=== PATIENT | female | born 1980 | race Native Hawaiian/Other Pacific Islander ===

== ENCOUNTER 2017-04-07 03:28 | Inpatient (IN) | payer OTHER ==
[2017-04-07] MEDS ORDERED: TYLENOL ONE (03:52)
[2017-04-07] MEDS ORDERED: TYLENOL PO ONE (03:58)
[2017-04-07 04:42] LABS: Basophils % (Auto) 0.2 % (0.0-1.8); Eosinophils % (Auto) 0.5 % (0.0-4.3); Hematocrit 36.8 % (30.3-42.9); Hemoglobin 11.9 gm/dl (10.1-14.3); Mean Corpuscular HGB Conc 32 % (30-34); Mean Corpuscular Hemoglobin 28 pg (28-32); Mean Corpuscular Volume 88 fl (79-97); Platelet Count 137 K/mm3 (140-440); Red Blood Count 4.18 M/mm3 (3.65-5.03); Red Cell Distribution Width 13.3 % (13.2-15.2); White Blood Count 16.6 K/mm3 (4.5-11.0)
[2017-04-07 05:33] LABS: Anion Gap 20 mmol/L; BUN/Creatinine Ratio 11.15; Blood Urea Nitrogen 29 mg/dL (7-17); Calcium 8.9 mg/dL (8.4-10.2); Carbon Dioxide 17 mmol/L (22-30); Glucose 128 mg/dL (65-100); Potassium 3.9 mmol/L (3.6-5.0); Sodium 135 mmol/L (137-145)
--- NOTE | 2017-04-07 07:32 | XRay Report ---
ROUTINE CHEST, TWO VIEWS: HISTORY: Shortness of breath. The trachea, heart, mediastinal contour, lung davidson and bony thorax are unremarkable. IMPRESSION: Unremarkable chest x-ray.
[2017-04-07 09:27] LABS: Bacteria,Urine 2+ /HPF (Negative); Bilirubin,Urine NEG (Negative); Blood,Urine NEG (Negative); Ketones,Urine NEG (Negative); Leukocyte Esterase,Urine MOD (Negative); Mucus,Urine FEW /HPF; Nitrite,Urine NEG (Negative); Urobilinogen,Urine < 2.0 mg/dL (<2.0)
--- NOTE | 2017-04-07 11:16 | Emergency Department Report ---
ED General Adult HPI - General Chief complaint: Nausea/Vomiting/Diarrhea Stated complaint: NAUSEA/VOMITING 2 DAYS Time Seen by Provider: 04/07/17 11:13 Source: patient, EMS Mode of arrival: Stretcher Limitations: Language Barrier - History of Present Illness Initial comments: Patient complains of left flank pain associated with dysuria but nonradiating for the past 2-3 days. She has had fever and chills and some nausea but no recent vomiting. Patient states that she's had one previous urinary tract infection but has been on no recent antibiotics. She does not have a history of kidney stone. She states her brother is on dialysis for unknown cause. He is not diabetic nor hypertensive she states. -: Gradual, days(s) Location: back, left Radiation: non-radiation Severity scale (0 -10): 0 Consistency: intermittent Improves with: none Worsens with: none Associated Symptoms: denies other symptoms Treatments Prior to Arrival: none - Related Data Allergies Allergy/AdvReac Type Severity Reaction Status Date / Time No Known Allergies Allergy Verified 04/07/17 04:04 ED Review of Systems ROS: Stated complaint: NAUSEA/VOMITING 2 DAYS Other details as noted in HPI Constitutional: chills, fever Eyes: denies: eye pain, eye discharge, vision change ENT: denies: ear pain, throat pain Respiratory: denies: cough, shortness of breath, wheezing Cardiovascular: denies: chest pain, palpitations Endocrine: no symptoms reported Gastrointestinal: denies: abdominal pain, nausea, diarrhea Genitourinary: as per HPI, urgency, dysuria. denies: discharge Musculoskeletal: denies: back pain, joint swelling, arthralgia Skin: denies: rash, lesions Neurological: denies: headache, weakness, paresthesias Psychiatric: denies: anxiety, depression Hematological/Lymphatic: denies: easy bleeding, easy bruising ED Past Medical Hx - Past Medical History Previous Medical History?: Yes Hx Kidney Stones: No Additional medical history: UTI - Surgical History Past Surgical History?: Yes Additional Surgical History: appy - Social History Smoking Status: Never Smoker Substance Use Type: None ED Physical Exam - General Limitations: No Limitations General appearance: alert, in no apparent distress - Head Head exam: Present: atraumatic, normocephalic - Eye Eye exam: Present: normal appearance. Absent: scleral icterus - ENT ENT exam: Present: mucous membranes moist - Neck Neck exam: Present: normal inspection. Absent: tenderness, meningismus - Respiratory Respiratory exam: Present: normal lung sounds bilaterally. Absent: respiratory distress - Cardiovascular Cardiovascular Exam: Present: regular rate, normal rhythm. Absent: systolic murmur, diastolic murmur, rubs, gallop - GI/Abdominal GI/Abdominal exam: Present: soft, normal bowel sounds. Absent: distended, tenderness, guarding, rebound, rigid - Extremities Exam Extremities exam: Present: normal inspection - Back Exam Back exam: Present: normal inspection - Neurological Exam Neurological exam: Present: alert, oriented X3, CN II-XII intact. Absent: motor sensory deficit - Psychiatric Psychiatric exam: Present: normal affect, normal mood - Skin Skin exam: Present: warm, dry, intact, normal color. Absent: rash ED Course Vital Signs 04/07/17 04/07/17 04/07/17 03:35 04:02 05:26 Temperature 102.6 F H 98.3 F Pulse Rate 123 H 100 H Respiratory 20 18 Rate Blood Pressure 108/73 Blood Pressure [Right] O2 Sat by Pulse 99 98 Oximetry 04/07/17 04/07/17 09:28 11:11 Temperature 98.1 F 98.3 F Pulse Rate 65 82 Respiratory 16 16 Rate Blood Pressure 104/61 Blood Pressure 110/72 [Right] O2 Sat by Pulse 99 Oximetry - Reevaluation(s) Reevaluation #1: Discussed with Dr. Carr. The patient will be bridged to his service. I am uncertain as to why the nurse put a history of kidney stones on the patient's chart since the patient was clear that she either had a history of kidney stones nor a family history of kidney stones. I suspect this was secondary to language barrier. In any case I believe it is worthy to do CT imaging study to determine the presence or absence of renal obstruction/kidney stones as an explanation of the patient's impaired renal function. This has been ordered. She has been started on ceftriaxone. She is stable at this time. 04/07/17 11:51 ED Medical Decision Making - Lab Data Result diagrams: 04/07/17 04:21 04/07/17 04:21 Laboratory Results - last 24 hr 04/07/17 04/07/17 04/07/17 04:21 04:21 04:21 WBC 16.6 H RBC 4.18 Hgb 11.9 Hct 36.8 MCV 88 MCH 28 MCHC 32 RDW 13.3 Plt Count 137 L Lymph % (Auto) 4.2 L [place] % (Auto) 5.9 Eos % (Auto) 0.5 Baso % (Auto) 0.2 Lymph # 0.7 L [place] # 1.0 H Eos # 0.1 Baso # 0.0 Seg Neutrophils % 89.2 H Seg Neutrophils # 14.8 H Sodium 135 L Potassium 3.9 Chloride 102.0 Carbon Dioxide 17 L Anion Gap 20 BUN 29 H Creatinine 2.6 H Estimated GFR 21 BUN/Creatinine Ratio 11.15 Glucose 128 H Calcium 8.9 Troponin T < 0.010 HCG, Qual Negative Urine Color Urine Turbidity Urine pH Ur Specific [place] Urine Protein Urine Glucose (UA) Urine Ketones Urine Blood Urine Nitrite Urine Bilirubin Urine Urobilinogen Ur Leukocyte Esterase Urine WBC (Auto) Urine RBC (Auto) U Epithel Cells (Auto) Urine Bacteria (Auto) Urine Mucus Urine HCG, Qual 04/07/17 08:10 WBC RBC Hgb Hct MCV MCH MCHC RDW Plt Count Lymph % (Auto) [place] % (Auto) Eos % (Auto) Baso % (Auto) Lymph # [place] # Eos # Baso # Seg Neutrophils % Seg Neutrophils # Sodium Potassium Chloride Carbon Dioxide Anion Gap BUN Creatinine Estimated GFR BUN/Creatinine Ratio Glucose Calcium Troponin T HCG, Qual Urine Color Yellow Urine Turbidity Clear Urine pH 6.0 Ur Specific [place] 1.012 Urine Protein 100 mg/dl Urine Glucose (UA) Neg Urine Ketones Neg Urine Blood Neg Urine Nitrite Neg Urine Bilirubin Neg Urine Urobilinogen < 2.0 Ur Leukocyte Esterase Mod Urine WBC (Auto) 93.0 H Urine RBC (Auto) 5.0 U Epithel Cells (Auto) 2.0 Urine Bacteria (Auto) 2+ Urine Mucus Few Urine HCG, Qual Negative Critical care attestation.: If time is entered above; I have spent that time in minutes in the direct care of this critically ill patient, excluding procedure time. ED Disposition Clinical Impression: Acute pyelonephritis Renal failure Qualifiers: Renal failure chronicity: unspecified chronicity Qualified Code(s): N19 - Unspecified kidney failure Disposition: OP ADMIT IP TO THIS HOSP Is pt being admited?: Yes Does the pt Need Aspirin: No Condition: Stable Time of Disposition: 11:52
[2017-04-07] MEDS ORDERED: ROCEPHIN/NS 1 GM/50 ML 1 GM/50 ML BAG IV ONE (11:18)
[2017-04-07] MEDS ORDERED: NACL 0.9% 1000 ML 1,000 ML IV ONE (11:29)
[2017-04-07] MEDS ORDERED: MORPHINE IV ONE (11:49)
[2017-04-07] MEDS ORDERED: ZOFRAN IV ONE (11:49)
[2017-04-07] MEDS ORDERED: TYLENOL PO PRN (11:55)
[2017-04-07 12:19] LABS: INR 1.15 (0.87-1.13)
[2017-04-07 12:20] LABS: Partial Thromboplastin Time 29.3 Sec. (24.2-36.6)
--- NOTE | 2017-04-07 12:25 | Admit Criteria Form ---
Admission Criteria Documentation: PYELONEPHRITIS, ACUTE Clinical Indications for Admission to Inpatient Care (Place 'X' for any and all applicable criteria): Admission is indicated for ANY ONE of the following 1,2,3,4,5 [ ]I. Outpatient treatment has failed or is not feasible (eg, multidrug- resistant organism).5 [ ]II. beyond 24 weeks' gestation6 [ ]III. Hemodynamic instability [ ]IV. Immunocompromised state (eg, AIDS, diabetes, sickle cell disease) [ ]V. Known renal or urologic abnormalities (eg, indwelling catheter, structural abnormalities, renal calculi, urinary stent, previous urologic surgery) [ ]. Condition that requires drainage procedure, including ANY ONE of the following: [ ]a) Urinary obstruction [ ]b) Pyelitis [ ]c) Pyonephrosis [ ]d) Renal or perinephric abscess [ ]e) Emphysematous pyelonephritis 7 [X ]VII. Inpatient admission required rather than observation care (Also use Pyelonephritis, Acute: Observation Care Criteria as appropriate) because of ANY ONE of the following: [ ]a) High fever or infection requiring inpatient admission as indicated by ANY ONE of [id number] [ ]A. Documented bacteremia [ ]B. Temp>104.9 [id number] (oral) [ ]C. Temp>103.10F (oral) or <96.80F (rectal) that does not respond to all emergency treatment [ ]b) Acute renal failure [ ]c) Other significant finding or clinical condition judged not to be within the scope of observation care [ ]d) IV fluid to replace significant ongoing (eg, for over 24hrs) losses (> 3 L/m2 per day) [ X]e) Other condition,treatment or monitoring requiring inpatient admission The original [employer] [facility] content created by [employer] has been revised. The portions of the content which have been revised are identified through the use of italic text or in bold, and [employer] [facility] has neither reviewed nor approved the modified material. All other unmodified content is copyright [employer]. Please see references footnoted in the original [employer] [facility] edition 2016 Admission Criteria Met: Yes
--- NOTE | 2017-04-07 12:27 | Cat Scan Report ---
CT scan of abdomen and pelvis without IV contrast: History: Abdominal pain. UTI. Findings: Suspicion of a nodular density/prominent vessel right lower lobe of the lung. No pleural or pericardial effusion. Normal liver spleen pancreas gallbladder. Normal adrenals kidney parenchyma and bladder. No free to peritoneal fluid or air. No evidence of adenopathy. Suspicion of a cyst right adnexa. Gaseous colon with moderate volume stool in colon with fecal impaction in the rectum. No evidence of appendicitis or diverticulitis. No bowel distention. Impression: Suspicion of cyst right adnexa.
[2017-04-07] MEDS: NACL 0.9% 1000 ML 1,000 ML IV SCH (15:47)
[2017-04-07] MEDS ORDERED: DILAUDID IV PRN (16:00)
--- NOTE | 2017-04-07 16:09 | History and Physical Report ---
History of Present Illness Date of examination: 04/07/17 Date of admission: 04/07/17 11:54 Chief complaint: L flank pain 2 days History of present illness: Patient complains of left flank pain associated with dysuria but nonradiating for the past 2-3 days. She has had fever and chills and some nausea but no recent vomiting. Patient states that she's had one previous urinary tract infection but has been on no recent antibiotics. She does not have a history of kidney stone. She states her brother is on dialysis for unknown cause. He is not diabetic nor hypertensive she states. -: Gradual, days(s) Location: back, left Radiation: non-radiation Severity scale (0 -10): 03/07 Consistency: intermittent Improves with: none Worsens with: none Associated Symptoms: denies other symptoms Treatments Prior to Arrival: none Review of Systems ROS: Stated complaint: NAUSEA/VOMITING 2 DAYS Other details as noted in HPI Constitutional: chills, fever Eyes: denies: eye pain, eye discharge, vision change ENT: denies: ear pain, throat pain Respiratory: denies: cough, shortness of breath, wheezing Cardiovascular: denies: chest pain, palpitations Endocrine: no symptoms reported Gastrointestinal: denies: abdominal pain, nausea, diarrhea Genitourinary: as per HPI, urgency, dysuria. denies: discharge Musculoskeletal: denies: back pain, joint swelling, arthralgia Skin: denies: rash, lesions Neurological: denies: headache, weakness, paresthesias Psychiatric: denies: anxiety, depression Hematological/Lymphatic: denies: easy bleeding, easy bruising Past Medical Hx - Past Medical History Previous Medical History?: Yes Hx Kidney Stones: No Additional medical history: UTI - Surgical History Past Surgical History?: Yes Additional Surgical History: appendectomy - Social History Smoking Status: Never Smoker Substance Use Type: None Past History Past Medical History: No medical history Medications and Allergies Allergies Allergy/AdvReac Type Severity Reaction Status Date / Time No Known Allergies Allergy Verified 04/07/17 04:04 Home Medications Medication Instructions Recorded Confirmed Last Taken Type No Known Home Medications [No 04/07/17 04/07/17 Unknown History Reported Home Medications] Active Meds: Active Medications Acetaminophen (Tylenol) 650 mg PO Q4H PRN PRN Reason: fever Last Admin: 04/07/17 14:56 Dose: 650 mg Hydromorphone HCl (Dilaudid) 1 mg IV Q4H PRN PRN Reason: Pain , Severe (7-10) Last Admin: 04/07/17 15:47 Dose: 1 mg Sodium Chloride (Nacl 0.9% 1000 Ml) 1,000 mls @ 100 mls/hr IV DIRECT ZIGGY Last Admin: 04/07/17 15:47 Dose: 100 mls/hr Review of Systems All systems: negative Exam - Physical Exam Narrative exam: Comfortable - Constitutional Vitals: Temp Pulse Resp BP Pulse Ox 103.9 F H 117 H 28 H 118/64 100 04/07/17 14:15 04/07/17 14:15 04/07/17 14:15 04/07/17 14:15 04/07/17 14:15 General appearance: Present: no acute distress, well-nourished - EENT Eyes: Present: PERRL ENT: hearing intact, clear oral mucosa - Neck Neck: Present: supple, normal ROM - Respiratory Respiratory effort: normal Respiratory: bilateral: CTA - Cardiovascular Heart Sounds: Present: S1 & S2. Absent: rub, click - Extremities Extremities: pulses symmetrical, No edema Peripheral Pulses: within normal limits - Abdominal General gastrointestinal: Present: soft, non-tender, non-distended, normal bowel sounds Female genitourinary: Present: normal - Integumentary Integumentary: Present: clear, warm, dry - Musculoskeletal Musculoskeletal: gait normal, strength equal bilaterally - Psychiatric Psychiatric: appropriate mood/affect, intact judgment & insight - Neurologic Neurologic: CNII-XII intact, moves all extremities Results - Labs CBC & Chem 7: 04/08/17 06:33 04/08/17 06:33 Labs: Laboratory Last Values WBC 16.6 K/mm3 (4.5-11.0) H 04/07/17 04:21 RBC 4.18 M/mm3 (3.65-5.03) 04/07/17 04:21 Hgb 11.9 gm/dl (10.1-14.3) 04/07/17 04:21 Hct 36.8 % (30.3-42.9) 04/07/17 04:21 MCV 88 fl (79-97) 04/07/17 04:21 MCH 28 pg (28-32) 04/07/17 04:21 MCHC 32 % (30-34) 04/07/17 04:21 RDW 13.3 % (13.2-15.2) 04/07/17 04:21 Plt Count 137 K/mm3 (140-440) L 04/07/17 04:21 Lymph % (Auto) 4.2 % (13.4-35.0) L 04/07/17 04:21 [place] % (Auto) 5.9 % (0.0-7.3) 04/07/17 04:21 Eos % (Auto) 0.5 % (0.0-4.3) 04/07/17 04:21 Baso % (Auto) 0.2 % (0.0-1.8) 04/07/17 04:21 Lymph # 0.7 K/mm3 (1.2-5.4) L 04/07/17 04:21 [place] # 1.0 K/mm3 (0.0-0.8) H 04/07/17 04:21 Eos # 0.1 K/mm3 (0.0-0.4) 04/07/17 04:21 Baso # 0.0 K/mm3 (0.0-0.1) 04/07/17 04:21 Seg Neutrophils % 89.2 % (40.0-70.0) H 04/07/17 04:21 Seg Neutrophils # 14.8 K/mm3 (1.8-7.7) H 04/07/17 04:21 PT 15.3 Sec. (12.2-14.9) H 04/07/17 11:51 INR 1.15 (0.87-1.13) H 04/07/17 11:51 APTT 29.3 Sec. (24.2-36.6) 04/07/17 11:51 Sodium 135 mmol/L (137-145) L 04/07/17 04:21 Potassium 3.9 mmol/L (3.6-5.0) 04/07/17 04:21 Chloride 102.0 mmol/L (98-107) 04/07/17 04:21 Carbon Dioxide 17 mmol/L (22-30) L 04/07/17 04:21 Anion Gap 20 mmol/L 04/07/17 04:21 BUN 29 mg/dL (7-17) H 04/07/17 04:21 Creatinine 2.6 mg/dL (0.7-1.2) H 04/07/17 04:21 Estimated GFR 21 ml/min 04/07/17 04:21 BUN/Creatinine Ratio 11.15 % 04/07/17 04:21 Glucose 128 mg/dL (65-100) H 04/07/17 04:21 Lactic Acid 1.30 mmol/L (0.7-2.0) 04/07/17 11:51 Calcium 8.9 mg/dL (8.4-10.2) 04/07/17 04:21 Troponin T < 0.010 ng/mL (0.00-0.029) 04/07/17 04:21 HCG, Qual Negative (Negative) 04/07/17 04:21 Urine Color Yellow (Yellow) 04/07/17 08:10 Urine Turbidity Clear (Clear) 04/07/17 08:10 Urine pH 6.0 (5.0-7.0) 04/07/17 08:10 Ur Specific [place] 1.012 (1.003-1.030) 04/07/17 08:10 Urine Protein 100 mg/dl mg/dL (Negative) 04/07/17 08:10 Urine Glucose (UA) Neg mg/dL (Negative) 04/07/17 08:10 Urine Ketones Neg mg/dL (Negative) 04/07/17 08:10 Urine Blood Neg (Negative) 04/07/17 08:10 Urine Nitrite Neg (Negative) 04/07/17 08:10 Urine Bilirubin Neg (Negative) 04/07/17 08:10 Urine Urobilinogen < 2.0 mg/dL (<2.0) 04/07/17 08:10 Ur Leukocyte Esterase Mod (Negative) 04/07/17 08:10 Urine WBC (Auto) 93.0 /HPF (0.0-6.0) H 04/07/17 08:10 Urine RBC (Auto) 5.0 /HPF (0.0-6.0) 04/07/17 08:10 U Epithel Cells (Auto) 2.0 /HPF (0-13.0) 04/07/17 08:10 Urine Bacteria (Auto) 2+ /HPF (Negative) 04/07/17 08:10 Urine Mucus Few /HPF 04/07/17 08:10 Urine HCG, Qual Negative (Negative) 04/07/17 08:10 - Imaging and Cardiology CT scan - abdomen: report reviewed (Cyst Rt Adnexa) Assessment and Plan Advance Directives: Yes (FC) VTE prophylaxis?: Chemical Plan of care discussed with patient/family: Yes - Patient Problems (1) Acute pyelonephritis Current Visit: Yes Status: Acute Plan to address problem: Iv Rocephin 2 gm IVPB Transition to po ABX day 3 depending on symptoms (2) DVT prophylaxis Current Visit: Yes Status: Acute Plan to address problem: on lovenox
[2017-04-07] MEDS ORDERED: PERCOCET 5/325 PO PRN (22:06)
[2017-04-07] MEDS ORDERED: DULCOLAX PR PRN (22:06)
[2017-04-07] MEDS ORDERED: ZOFRAN IV PRN (22:06)
[2017-04-07] MEDS ORDERED: AMBIEN PO PRN (22:06)
[2017-04-07] MEDS ORDERED: MILK OF MAGNESIA PO PRN (22:06)
[2017-04-08] MEDS: NACL 0.9% 1000 ML 1,000 ML IV SCH (01:20)
[2017-04-08 06:54] LABS: Basophils % (Auto) 0.2 % (0.0-1.8); Eosinophils % (Auto) 1.5 % (0.0-4.3); Hematocrit 30.9 % (30.3-42.9); Mean Corpuscular HGB Conc 32 % (30-34); Mean Corpuscular Hemoglobin 29 pg (28-32); Mean Corpuscular Volume 89 fl (79-97); Platelet Count 108 K/mm3 (140-440); Red Blood Count 3.49 M/mm3 (3.65-5.03); Red Cell Distribution Width 13.8 % (13.2-15.2); White Blood Count 13.6 K/mm3 (4.5-11.0)
[2017-04-08 07:20] LABS: BUN/Creatinine Ratio 10.37; Calcium 8.4 mg/dL (8.4-10.2); Chloride 107.1 mmol/L (98-107); Potassium 4.1 mmol/L (3.6-5.0)
[2017-04-08] MEDS ORDERED: PEPCID PO SCH (10:00)
[2017-04-08] MEDS: ROCEPHIN/NS 2 GM/100 ML 2 GM/100 ML BAG IV SCH (11:13)
[2017-04-08] MEDS: PEPCID PO SCH ×2 (11:14→22:10)
[2017-04-08] MEDS: TYLENOL PO PRN (15:48)
--- NOTE | 2017-04-08 17:11 | Progress Note ---
Assessment and Plan Assessment and plan: --Febrile illness Secondary to pyelonephritis/UTI present on admission Antipyretics, IV fluids, antibiotics, follow cultures --Acute pyelonephritis Cultures negative to date, continue empiric antibiotics, supportive care --Sepsis secondary to acute pyelonephritis Continue current management --Acute renal failure; vasomotor nephropathy; ATN Closely monitor renal function, IV hydration, avoid nephrotoxic medications Consistent nephrology evaluation if needed --Leukocytosis; secondary to sepsis and pyelonephritis, slowly trending down --DVT prophylaxis with Lovenox Closely monitor the patient and adjust the management as needed Plan of care discussed with the patient and her nurse Disposition; possible discharge in 1-2 days if stable History Interval history: Patient seen and evaluated medical records reviewed. Spiked fever of 103 this morning Admitted with sepsis and pyelonephritis on empiric antibiotics Patient complains of generalized weakness, denies chest pain denies nausea vomiting Alert awake oriented 3 not in acute distress Vital signs reviewed stable Hospitalist Physical - Constitutional Vitals: Temp Pulse Resp BP Pulse Ox 99.2 F 84 18 103/65 98 04/08/17 16:00 04/08/17 16:00 04/08/17 16:00 04/08/17 16:00 04/08/17 16:00 General appearance: Present: no acute distress, well-nourished - EENT Eyes: Present: PERRL, EOM intact - Neck Neck: Present: supple, normal ROM - Respiratory Respiratory effort: normal Respiratory: negative: rales, rhonchi, wheezing - Cardiovascular Rhythm: regular Heart Sounds: Present: S1 & S2 - Extremities Extremities: no ischemia, No edema - Abdominal General gastrointestinal: soft, non-tender, non-distended, normal bowel sounds - Integumentary Integumentary: Present: clear, warm - Psychiatric Psychiatric: appropriate mood/affect, cooperative - Neurologic Neurologic: CNII-XII intact, moves all extremities Results - Labs CBC & Chem 7: 04/08/17 06:33 04/08/17 06:33 Labs: Laboratory Last Values WBC 13.6 K/mm3 (4.5-11.0) H 04/08/17 06:33 RBC 3.49 M/mm3 (3.65-5.03) L 04/08/17 06:33 Hgb 10.0 gm/dl (10.1-14.3) L 04/08/17 06:33 Hct 30.9 % (30.3-42.9) 04/08/17 06:33 MCV 89 fl (79-97) 04/08/17 06:33 MCH 29 pg (28-32) 04/08/17 06:33 MCHC 32 % (30-34) 04/08/17 06:33 RDW 13.8 % (13.2-15.2) 04/08/17 06:33 Plt Count 108 K/mm3 (140-440) L 04/08/17 06:33 Lymph % (Auto) 13.1 % (13.4-35.0) L 04/08/17 06:33 [place] % (Auto) 8.9 % (0.0-7.3) H 04/08/17 06:33 Eos % (Auto) 1.5 % (0.0-4.3) 04/08/17 06:33 Baso % (Auto) 0.2 % (0.0-1.8) 04/08/17 06:33 Lymph # 1.8 K/mm3 (1.2-5.4) 04/08/17 06:33 [place] # 1.2 K/mm3 (0.0-0.8) H 04/08/17 06:33 Eos # 0.2 K/mm3 (0.0-0.4) 04/08/17 06:33 Baso # 0.0 K/mm3 (0.0-0.1) 04/08/17 06:33 Seg Neutrophils % 76.3 % (40.0-70.0) H 04/08/17 06:33 Seg Neutrophils # 10.4 K/mm3 (1.8-7.7) H 04/08/17 06:33 PT 15.3 Sec. (12.2-14.9) H 04/07/17 11:51 INR 1.15 (0.87-1.13) H 04/07/17 11:51 APTT 29.3 Sec. (24.2-36.6) 04/07/17 11:51 Sodium 138 mmol/L (137-145) 04/08/17 06:33 Potassium 4.1 mmol/L (3.6-5.0) 04/08/17 06:33 Chloride 107.1 mmol/L (98-107) H 04/08/17 06:33 Carbon Dioxide 20 mmol/L (22-30) L 04/08/17 06:33 Anion Gap 15 mmol/L 04/08/17 06:33 BUN 28 mg/dL (7-17) H 04/08/17 06:33 Creatinine 2.7 mg/dL (0.7-1.2) H 04/08/17 06:33 Estimated GFR 20 ml/min 04/08/17 06:33 BUN/Creatinine Ratio 10.37 % 04/08/17 06:33 Glucose 85 mg/dL (65-100) 04/08/17 06:33 Lactic Acid 1.30 mmol/L (0.7-2.0) 04/07/17 11:51 Calcium 8.4 mg/dL (8.4-10.2) 04/08/17 06:33 Troponin T < 0.010 ng/mL (0.00-0.029) 04/07/17 04:21 Lipase 22 units/L (13-60) 04/07/17 04:21 HCG, Qual Negative (Negative) 04/07/17 04:21 Urine Color Yellow (Yellow) 04/07/17 08:10 Urine Turbidity Clear (Clear) 04/07/17 08:10 Urine pH 6.0 (5.0-7.0) 04/07/17 08:10 Ur Specific [place] 1.012 (1.003-1.030) 04/07/17 08:10 Urine Protein 100 mg/dl mg/dL (Negative) 04/07/17 08:10 Urine Glucose (UA) Neg mg/dL (Negative) 04/07/17 08:10 Urine Ketones Neg mg/dL (Negative) 04/07/17 08:10 Urine Blood Neg (Negative) 04/07/17 08:10 Urine Nitrite Neg (Negative) 04/07/17 08:10 Urine Bilirubin Neg (Negative) 04/07/17 08:10 Urine Urobilinogen < 2.0 mg/dL (<2.0) 04/07/17 08:10 Ur Leukocyte Esterase Mod (Negative) 04/07/17 08:10 Urine WBC (Auto) 93.0 /HPF (0.0-6.0) H 04/07/17 08:10 Urine RBC (Auto) 5.0 /HPF (0.0-6.0) 04/07/17 08:10 U Epithel Cells (Auto) 2.0 /HPF (0-13.0) 04/07/17 08:10 Urine Bacteria (Auto) 2+ /HPF (Negative) 04/07/17 08:10 Urine Mucus Few /HPF 04/07/17 08:10 Urine HCG, Qual Negative (Negative) 04/07/17 08:10
[2017-04-09 08:55] LABS: Hematocrit 32.5 % (30.3-42.9); Hemoglobin 10.6 gm/dl (10.1-14.3); Mean Corpuscular HGB Conc 33 % (30-34); Mean Corpuscular Hemoglobin 29 pg (28-32); Mean Corpuscular Volume 89 fl (79-97); Platelet Count 147 K/mm3 (140-440); Red Blood Count 3.65 M/mm3 (3.65-5.03); Red Cell Distribution Width 13.6 % (13.2-15.2); White Blood Count 9.3 K/mm3 (4.5-11.0)
[2017-04-09] MEDS: PEPCID PO SCH ×2 (09:07→22:06)
--- NOTE | 2017-04-09 09:10 | Progress Note ---
Assessment and Plan Assessment and plan: --Gram-negative Sepsis secondary to Escherichia coli ,Continue Rocephin, IV fluids, supportive care --Acute pyelonephritis/UTI present on admission Antipyretics, IV fluids, antibiotics, cultures positive for Escherichia coli --Acute renal failure; vasomotor nephropathy; ATN Closely monitor renal function, IV hydration, avoid nephrotoxic medications nephrology evaluation --Leukocytosis; secondary to sepsis and pyelonephritis, slowly trending down --DVT prophylaxis with Lovenox Plan of care discussed with the patient and her nurse Disposition; possible discharge in 1-2 days if stable History Interval history: Patient seen and evaluated medical records reviewed Patient slightly better compared, afebrile, alert awake oriented 3 not in acute distress, vital signs reviewed Hospitalist Physical - Constitutional Vitals: Temp Pulse Resp BP Pulse Ox 97.9 F 62 18 113/54 97 04/09/17 07:57 04/09/17 07:57 04/09/17 07:57 04/09/17 07:57 04/09/17 07:57 General appearance: Present: no acute distress, well-nourished - EENT Eyes: Present: PERRL, EOM intact - Neck Neck: Present: supple, normal ROM - Respiratory Respiratory effort: normal Respiratory: bilateral: diminished, negative: rales, rhonchi, wheezing - Cardiovascular Rhythm: regular Heart Sounds: Present: S1 & S2 - Extremities Extremities: no ischemia, No edema - Abdominal General gastrointestinal: soft, non-tender, non-distended, normal bowel sounds - Integumentary Integumentary: Present: clear, warm - Psychiatric Psychiatric: appropriate mood/affect, cooperative - Neurologic Neurologic: CNII-XII intact, moves all extremities Results - Labs CBC & Chem 7: 04/09/17 07:59 04/09/17 07:59 Labs: Laboratory Last Values WBC 13.6 K/mm3 (4.5-11.0) H 04/08/17 06:33 RBC 3.49 M/mm3 (3.65-5.03) L 04/08/17 06:33 Hgb 10.0 gm/dl (10.1-14.3) L 04/08/17 06:33 Hct 30.9 % (30.3-42.9) 04/08/17 06:33 MCV 89 fl (79-97) 04/08/17 06:33 MCH 29 pg (28-32) 04/08/17 06:33 MCHC 32 % (30-34) 04/08/17 06:33 RDW 13.8 % (13.2-15.2) 04/08/17 06:33 Plt Count 108 K/mm3 (140-440) L 04/08/17 06:33 Lymph % (Auto) 13.1 % (13.4-35.0) L 04/08/17 06:33 [place] % (Auto) 8.9 % (0.0-7.3) H 04/08/17 06:33 Eos % (Auto) 1.5 % (0.0-4.3) 04/08/17 06:33 Baso % (Auto) 0.2 % (0.0-1.8) 04/08/17 06:33 Lymph # 1.8 K/mm3 (1.2-5.4) 04/08/17 06:33 [place] # 1.2 K/mm3 (0.0-0.8) H 04/08/17 06:33 Eos # 0.2 K/mm3 (0.0-0.4) 04/08/17 06:33 Baso # 0.0 K/mm3 (0.0-0.1) 04/08/17 06:33 Seg Neutrophils % 76.3 % (40.0-70.0) H 04/08/17 06:33 Seg Neutrophils # 10.4 K/mm3 (1.8-7.7) H 04/08/17 06:33 PT 15.3 Sec. (12.2-14.9) H 04/07/17 11:51 INR 1.15 (0.87-1.13) H 04/07/17 11:51 APTT 29.3 Sec. (24.2-36.6) 04/07/17 11:51 Sodium 138 mmol/L (137-145) 04/08/17 06:33 Potassium 4.1 mmol/L (3.6-5.0) 04/08/17 06:33 Chloride 107.1 mmol/L (98-107) H 04/08/17 06:33 Carbon Dioxide 20 mmol/L (22-30) L 04/08/17 06:33 Anion Gap 15 mmol/L 04/08/17 06:33 BUN 28 mg/dL (7-17) H 04/08/17 06:33 Creatinine 2.7 mg/dL (0.7-1.2) H 04/08/17 06:33 Estimated GFR 20 ml/min 04/08/17 06:33 BUN/Creatinine Ratio 10.37 % 04/08/17 06:33 Glucose 85 mg/dL (65-100) 04/08/17 06:33 Lactic Acid 1.30 mmol/L (0.7-2.0) 04/07/17 11:51 Calcium 8.4 mg/dL (8.4-10.2) 04/08/17 06:33 Troponin T < 0.010 ng/mL (0.00-0.029) 04/07/17 04:21 Lipase 22 units/L (13-60) 04/07/17 04:21 HCG, Qual Negative (Negative) 04/07/17 04:21 Urine Color Yellow (Yellow) 04/07/17 08:10 Urine Turbidity Clear (Clear) 04/07/17 08:10 Urine pH 6.0 (5.0-7.0) 04/07/17 08:10 Ur Specific [place] 1.012 (1.003-1.030) 04/07/17 08:10 Urine Protein 100 mg/dl mg/dL (Negative) 04/07/17 08:10 Urine Glucose (UA) Neg mg/dL (Negative) 04/07/17 08:10 Urine Ketones Neg mg/dL (Negative) 04/07/17 08:10 Urine Blood Neg (Negative) 04/07/17 08:10 Urine Nitrite Neg (Negative) 04/07/17 08:10 Urine Bilirubin Neg (Negative) 04/07/17 08:10 Urine Urobilinogen < 2.0 mg/dL (<2.0) 04/07/17 08:10 Ur Leukocyte Esterase Mod (Negative) 04/07/17 08:10 Urine WBC (Auto) 93.0 /HPF (0.0-6.0) H 04/07/17 08:10 Urine RBC (Auto) 5.0 /HPF (0.0-6.0) 04/07/17 08:10 U Epithel Cells (Auto) 2.0 /HPF (0-13.0) 04/07/17 08:10 Urine Bacteria (Auto) 2+ /HPF (Negative) 04/07/17 08:10 Urine Mucus Few /HPF 04/07/17 08:10 Urine HCG, Qual Negative (Negative) 04/07/17 08:10
[2017-04-09 09:17] LABS: Basophils % (Auto) 0.3 % (0.0-1.8); Eosinophils % (Auto) 2.2 % (0.0-4.3)
[2017-04-09 09:18] LABS: BUN/Creatinine Ratio 8.84; Calcium 8.9 mg/dL (8.4-10.2)
[2017-04-09] MEDS: NACL 0.9% 1000 ML 1,000 ML IV SCH ×2 (10:03→22:06)
[2017-04-09] MEDS: ROCEPHIN/NS 2 GM/100 ML 2 GM/100 ML BAG IV SCH (10:04)
[2017-04-09 10:05] LABS: Basophils % (Manual) 0 % (0.0-1.8); Blastocytes % (Manual) 0 %
[2017-04-09 10:06] LABS: Diff Status Complete; Platelet Estimate Consistent w Auto; RBC Morphology Normal
--- NOTE | 2017-04-09 10:07 | Consultation ---
History of Present Illness - Reason for Consult Consult date: 04/09/17 acute renal failure, chronic renal failure, metabolic acidosis - History of Present Illness Patient is a 37 year old HF without any significant medical history came to the ED with 1-2 days h/o left flank pain and dysuria. Patient speaks only [place] and history obtained through the photographic engineer. She has had fever, chills, nausea and few episodes of vomiting. All of her symptoms have resolved now. She is being treated for E.Coli UTI. Her creatinine is around 2.6 since admission, no prior labs are available. Her initial BP was low. Patient denies any history of kidney stone, NSAID intake or hematuria. She states her brother is on dialysis for unknown cause. Past History Past Medical History: No medical history Medications and Allergies Allergies Allergy/AdvReac Type Severity Reaction Status Date / Time No Known Allergies Allergy Verified 04/07/17 04:04 Home Medications Medication Instructions Recorded Confirmed Last Taken Type No Known Home Medications [No 04/07/17 04/07/17 Unknown History Reported Home Medications] Active Meds: Active Medications Acetaminophen (Tylenol) 650 mg PO Q4H PRN PRN Reason: Pain MILD(1-3)/Fever >100.5/CARTWRIGTH Last Admin: 04/08/17 15:48 Dose: 650 mg Bisacodyl (Dulcolax) 10 mg MN QDAY PRN PRN Reason: Constipation unrelieved by MOM Famotidine (Pepcid) 10 mg PO BID ZGIGY Last Admin: 04/09/17 09:07 Dose: 10 mg Hydromorphone HCl (Dilaudid) 1 mg IV Q4H PRN PRN Reason: Pain , Severe (7-10) Last Admin: 04/07/17 15:47 Dose: 1 mg Sodium Chloride (Nacl 0.9% 1000 Ml) 1,000 mls @ 125 mls/hr IV DIRECT ZIGGY Last Admin: 04/09/17 10:03 Dose: 100 mls/hr Ceftriaxone Sodium (Rocephin/Ns 2 Gm/100 Ml) 2 gm in 100 mls @ 200 mls/hr IV Q24HR ZIGGY PRN Reason: Protocol Last Admin: 04/09/17 10:04 Dose: 200 mls/hr Magnesium Hydroxide (Milk Of Magnesia) 30 ml PO Q4H PRN PRN Reason: Constipation Ondansetron HCl (Zofran) 4 mg IV Q8H PRN PRN Reason: N/V unrelieved by Reglan Oxycodone/Acetaminophen (Percocet 5/325) 1 tab PO Q6H PRN PRN Reason: Pain, Moderate (4-6) Zolpidem Tartrate (Ambien) 5 mg PO QHS PRN PRN Reason: Insomnia Last Admin: 04/08/17 01:20 Dose: 5 mg Review of Systems Constitutional: fever, chills, no weight loss, no weight gain, no weakness, no chronic pain Ears, nose, mouth and throat: no epistaxis Breasts: deferred Cardiovascular: no chest pain, no edema, no lightheadedness, no shortness of breath Respiratory: no cough Gastrointestinal: abdominal pain, nausea, vomiting, no diarrhea, no hematemesis , no melena Genitourinary Female: dysuria, no hematuria Rectal: no bleeding Integumentary: no rash Neurological: no paralysis Exam - Vital Signs Vital signs: Vital Signs Temp Pulse Resp BP Pulse Ox 102.6 F H 123 H 20 108/73 99 04/07/17 03:35 04/07/17 03:35 04/07/17 03:35 04/07/17 03:35 04/07/17 03:35 - General Appearance General appearance: well-developed, well-nourished, appears stated age, other ( no distress) EENT: ATNC, PERRL, mucous membranes dry, hearing intact, vision intact Neck: Present: neck supple, trachea midline Respiratory: Clear to Ascultation Heart: regular, S1S2, no murmurs Gastrointestinal: Present: normoactive bowel sounds. Absent: tenderness, distended Integumentary: no rash Neurologic: no focal deficit, no asterixis Musculoskeletal: Present: other (no edema) Psychiatric: mood/affect appropriate, cooperative Results - Lab Results 04/09/17 07:59 04/09/17 07:59 Most recent lab results Calcium 8.9 mg/dL (8.4-10.2) 04/09/17 07:59 - Image Kidney/bladder ultrasound: report reviewed Assessment and Plan - Patient Problems (1) RAMA (acute kidney injury) Current Visit: Yes Status: Acute Plan to address problem: RAMA in the setting of volume depletion, SIRS / Sepsis. Baseline renal function is unknown. Continue IV fluids. Urine studies ordered. Follow renal function. (2) Complicated UTI (urinary tract infection) Current Visit: Yes Status: Acute (3) Metabolic acidosis Current Visit: Yes Status: Acute Plan to address problem: Add PO Sodium bicarbonate.
[2017-04-09] MEDS: TYLENOL PO PRN (14:46)
[2017-04-10 07:49] LABS: Alanine Aminotransferase 15 units/L (7-56); Albumin/Globulin Ratio 0.9 %; Alkaline Phosphatase 141 units/L (35-129); Anion Gap 19 mmol/L; BUN/Creatinine Ratio 8.75; Bilirubin,Total < 0.20 mg/dL (0.1-1.2); Blood Urea Nitrogen 21 mg/dL (7-17); Calcium 8.5 mg/dL (8.4-10.2); Carbon Dioxide 17 mmol/L (22-30); Chloride 108.6 mmol/L (98-107); Creatine Kinase 21 units/L (30-135); Glucose 94 mg/dL (65-100); Potassium 4.4 mmol/L (3.6-5.0); Sodium 140 mmol/L (137-145); Total Protein 6.4 g/dL (6.3-8.2)
[2017-04-10] MEDS: NACL 0.9% 1000 ML 1,000 ML IV SCH (08:18)
[2017-04-10 08:46] VITALS: BP 124/60
[2017-04-10] MEDS: PEPCID PO SCH (09:27)
[2017-04-10] MEDS: ROCEPHIN/NS 2 GM/100 ML 2 GM/100 ML BAG IV SCH (09:28)
--- NOTE | 2017-04-10 09:45 | Progress Note ---
Assessment and Plan - Patient Problems (1) RAMA (acute kidney injury) Current Visit: Yes Status: Acute (2) Complicated UTI (urinary tract infection) Current Visit: Yes Status: Acute (3) Metabolic acidosis Current Visit: Yes Status: Acute Subjective Date of service: 04/10/17 Objective - Vital Signs Vital signs: Vital Signs - 12hr 04/09/17 04/10/17 04/10/17 22:00 00:00 07:00 Temperature 98.0 F 98.0 F Pulse Rate [ 62 57 L Right Radial] Respiratory 18 20 Rate Respiratory 18 Rate [Back] Blood Pressure 105/60 124/60 [Right Arm] O2 Sat by Pulse 98 98 Oximetry - Lab 04/09/17 07:59 04/10/17 06:20 Most recent lab results Calcium 8.5 mg/dL (8.4-10.2) 04/10/17 06:20 Phosphorus 3.50 mg/dL (2.5-4.5) 04/10/17 06:20 Magnesium 1.60 mg/dL (1.7-2.3) L 04/10/17 06:20 Urine Creatinine 64.1 mg/dL (0.1-20.0) H 04/09/17 18:45 Urine Sodium 89 mEq/L 04/09/17 18:45
[2017-04-10] MEDS ORDERED: MAG-OX PO SCH (10:00)
--- NOTE | 2017-04-10 11:11 | Discharge Summary ---
Providers - Providers Date of Admission: 04/07/17 11:54 Date of discharge: 04/10/17 Attending physician: ALFRED WHEAT 04/09/17 09:58 Consult to Physician [CONS] Routine Consulting Provider: BRENT PAYAN Reason For Exam: Acute vs ac on chronic Kidney Disease Place consult to:: dr. payan Notified:: voice mail Phone number called:: [phone] Was contact made?: No Time called:: 11:16 Primary care physician: [employer] [facility] Hospitalization Condition: Stable Disposition: DC-01 TO HOME OR SELFCARE Core Measure Documentation - Palliative Care Palliative Care/ Comfort Measures: Not Applicable - Core Measures Any of the following diagnoses?: none Exam - Constitutional Vitals: Temp Pulse Resp BP Pulse Ox 98.0 F 57 L 20 124/60 98 04/10/17 07:00 04/10/17 07:00 04/10/17 07:00 04/10/17 07:00 04/10/17 07:00 General appearance: Present: no acute distress, well-nourished - EENT Eyes: Present: PERRL, EOM intact - Neck Neck: Present: supple, normal ROM - Respiratory Respiratory effort: normal Respiratory: bilateral: diminished, negative: rales, rhonchi, wheezing - Cardiovascular Rhythm: regular Heart Sounds: Present: S1 & S2 - Extremities Extremities: no ischemia, No edema - Abdominal General gastrointestinal: Present: soft, non-tender, non-distended, normal bowel sounds - Integumentary Integumentary: Present: clear, warm - Musculoskeletal Musculoskeletal: strength equal bilaterally - Psychiatric Psychiatric: appropriate mood/affect, cooperative - Neurologic Neurologic: CNII-XII intact, moves all extremities Plan Activity: no restrictions Diet: regular, other (plenty of oral fluids) Additional Instructions: check BMP at PMD office in 3-4 days Follow up with: JEAN HAMMOND MD [Primary Care Provider] - 7 Days BRENT PAYAN MD [Staff Physician] - 7 Days Prescriptions: Doxycycline [Vibramycin CAP] 100 mg PO Q12HR #20 capsule Famotidine [Pepcid] 10 mg PO BID #20 tablet Magnesium Oxide [Mag-Ox] 400 mg PO QDAY #5 tablet
== END 2017-04-10 15:50 | disposition home or self-care (01) | DRG 871 ==
LOC: ED 03:28 → 3A 11:54
PROVIDERS: ADMIT Internal Medicine; ATTEND Internal Medicine
DX: A41.50 Gram-negative sepsis, unspecified (principal); N17.0 Acute kidney failure with tubular necrosis; N10 Acute pyelonephritis; E87.2 Acidosis; Z90.89 Acquired absence of other organs
CPT/HCPCS: 36415; 71020; 74176; 80048; 80053; 81001; 81025; 82140; 82550; 82570; 83690; 83735; 83970; 84100; 84300; 84484; 84703; 85007; 85025; 85610; 85730; 87040; 87076; 87086; 87186; 89050; 93005; 93010; 96374; 96375; J0696; J1170; J2270; J2405; J7030